=== PATIENT | male | born 2005 | race Caucasian/White ===

== ENCOUNTER 2024-01-09 00:51 | Emergency (ER) | payer OTHER ==
[~2024-01-09] VITALS: Ht 182.9 cm; Wt 70.5 kg
[2024-01-09 02:56] VITALS: TEMP 98.3
[2024-01-09 03:37] LABS: ANION GAP 6 mmol/L (8-16); CARBON DIOXIDE 30 mmol/L (22-29); CHLORIDE 101 mmol/L (98-107); CREATININE 1.01 mg/dL (0.60-1.30); GLOMERULAR FILTR. RATE CALC > 60 mL/min (>60); GLUCOSE,RANDOM 106 mg/dL (70-110); POTASSIUM 3.7 mmol/L (3.5-5.1); SODIUM SERUM 137 mmol/L (136-145); UREA NITROGEN, BLOOD 17 mg/dL (7-18)
[2024-01-09 03:40] LABS: BASOPHILS % (AUTO) 0.6 % (0.0-2.0); EOSINOPHILS % (AUTO) 0.3 % (1.0-6.0); HEMATOCRIT 44.4 % (41-53); HEMOGLOBIN 14.8 g/dL (13.5-17.5); LYMPHOCYTES # (AUTO) 1.4 K/uL (1.0-4.8); LYMPHOCYTES % (AUTO) 20.5 % (22.0-44.0); MEAN CORPUSCULAR HGB CONC 33.4 G/dL (31.0-37.0); MEAN CORPUSCULAR VOLUME 87 fL (80-100); MONOCYTES # (AUTO) 0.6 K/uL (0.1-1.0); MONOCYTES % (AUTO) 8.2 % (2.0-9.0); NEUTROPHILS # (AUTO) 4.8 K/uL (1.8-7.7); NEUTROPHILS % (AUTO) 70.4 % (40.0-70.0); PLATELET COUNT (AUTO) 276 K/uL (150-450); RED BLOOD CELL COUNT(AUTO) 5.12 MIL/uL (4.50-5.90); RED CELL DISTRIBUTION WIDTH 13.5 % (11.5-14.5); WHITE BLOOD COUNT (AUTO) 6.8 K/uL (4.5-11.0)
[2024-01-09 03:48] LABS: ALCOHOL, BLOOD (SERUM) < 3 mg/dL (0-10)
[2024-01-09 04:48] VITALS: BP 124/79; PULSE 85; RESP 16
[2024-01-09 04:57] LABS: COVID AG,FIA SOURCE NASAL SWAB
[2024-01-09 05:16] LABS: ALCOHOL, URINE DRUG SCREEN NEGATIVE (NEGATIVE); AMPHET/METH SCREEN,URINE NEGATIVE (NEGATIVE); BARBITURATE SCREEN, URINE NEGATIVE (NEGATIVE); BENZODIAZEPINES SCREEN,URINE NEGATIVE (NEGATIVE); CANNABINOID SCREEN,URINE POSITIVE (NEGATIVE); COCAINE SCREEN,URINE NEGATIVE (NEGATIVE); METHADONE SCREEN, URINE NEGATIVE (NEGATIVE); OPIATE SCREEN,URINE NEGATIVE (NEGATIVE); PHENCYCLIDINE SCREEN,URINE NEGATIVE (NEGATIVE)
[2024-01-09 05:17] LABS: SARS-COV2 (COVID) ANTIGEN,FIA Positive (Negative)
== END 2024-01-09 05:34 | disposition home or self-care (01) ==
LOC: EMS 00:53
DX: F32.9 Major depressive disorder, single episode, unspecified (principal); R45.851 Suicidal ideations; Z79.899 Other long term (current) drug therapy; Z20.822 Contact with and (suspected) exposure to COVID-19
CPT/HCPCS: 99285; 87426; 80048; 85025; 36415; 80307; G0480

== ENCOUNTER 2024-05-08 13:23 | Inpatient (IN) | payer OTHER ==
[~2024-05-08] VITALS: Ht 182.9 cm; Wt 68.0 kg
[2024-05-08] MEDS ORDERED: ONDANSETRON 4 MG TABLET PO PRN (17:45)
[2024-05-08] MEDS ORDERED: ACETAMINOPHEN 325 MG TABLET PO PRN (17:45)
[2024-05-08] MEDS ORDERED: OxyCODONE HCL 5 MG IR TABLET PO PRN (17:45)
[2024-05-08] MEDS ORDERED: OxyCODONE HCL 10 MG IR TABLET PO PRN (17:45)
[2024-05-08] MEDS ORDERED: NALOXONE HCL 0.4 MG/ML VIAL IVP PRN (18:15)
[2024-05-08 20:30] VITALS: BP 117/66; PULSE 87; RESP 18; TEMP 98.2; O2SAT 99
[2024-05-08] MEDS: POLYETHYLENE GLYCOL 3350 17 GM PACKET PO SCH (21:00)
[2024-05-08] MEDS: METHOCARBAMOL 500 MG TABLET PO SCH (21:29)
[2024-05-08] MEDS: ENOXAPARIN SODIUM 40 MG/0.4 ML PF SYRINGE SQ SCH (21:29)
[2024-05-08] MEDS: GABAPENTIN 300 MG CAPSULE PO SCH (21:30)
[2024-05-08] MEDS: ETHYL ALCOHOL 62% ANTISEPTIC NASAL SANITIZER 0.6 ML AMPUL NASAL SCH (21:30)
[2024-05-08] MEDS: SENNOSIDES 8.6 MG TABLET PO SCH (21:30)
[2024-05-08] MEDS: DOCUSATE SODIUM 100 MG CAPSULE PO SCH (21:30)
[2024-05-09] MEDS: IBUPROFEN 600 MG TABLET PO SCH
[2024-05-09] MEDS: MELATONIN 5 MG TABLET PO PRN (00:17)
[2024-05-09 00:33] VITALS: O2SAT 99
[2024-05-09 07:02] LABS: BASOPHILS % (AUTO) 0.8 % (0.0-2.0); HEMATOCRIT 29.3 % (41-53); HEMOGLOBIN 10.2 g/dL (13.5-17.5); LYMPHOCYTES # (AUTO) 1.6 K/uL (1.0-4.8); LYMPHOCYTES % (AUTO) 18.2 % (22.0-44.0); MEAN CORPUSCULAR HEMOGLOBIN 30.9 pg (26.0-34.0); MEAN CORPUSCULAR HGB CONC 34.8 G/dL (31.0-37.0); MEAN CORPUSCULAR VOLUME 89 fL (80-100); MONOCYTES # (AUTO) 0.9 K/uL (0.1-1.0); MONOCYTES % (AUTO) 10.4 % (2.0-9.0); NEUTROPHILS % (AUTO) 69.6 % (40.0-70.0); PLATELET COUNT (AUTO) 671 K/uL (150-450); RED BLOOD CELL COUNT(AUTO) 3.31 MIL/uL (4.50-5.90); RED CELL DISTRIBUTION WIDTH 14.9 % (11.5-14.5); WHITE BLOOD COUNT (AUTO) 8.6 K/uL (4.5-11.0)
[2024-05-09 07:48] LABS: ALANINE AMINOTRANSFERASE 94 U/L (12-78); ALBUMIN 2.9 g/dL (3.4-5.0); ALKALINE PHOSPHATASE 166 U/L (46-116); ANION GAP 7 mmol/L (8-16); ASPARTATE AMINOTRANSFERASE 23 U/L (15-37); BILIRUBIN,TOTAL 0.5 mg/dL (0.1-1.0); CALCIUM, TOTAL 9.1 mg/dL (8.8-10.5); CARBON DIOXIDE 30 mmol/L (22-29); CHLORIDE 102 mmol/L (98-107); CREATININE 0.63 mg/dL (0.60-1.30); GLOMERULAR FILTR. RATE CALC > 60 mL/min (>60); GLUCOSE,RANDOM 108 mg/dL (70-110); POTASSIUM 4.1 mmol/L (3.5-5.1); SODIUM SERUM 139 mmol/L (136-145); TOTAL PROTEIN, SERUM 6.8 g/dL (6.4-8.2); UREA NITROGEN, BLOOD 17 mg/dL (7-18)
[2024-05-09 08:00] VITALS: BP 116/71; PULSE 71; RESP 18; TEMP 98.1; O2SAT 99
[2024-05-09 20:00] VITALS: BP 122/61; PULSE 103; RESP 18; TEMP 98.2; O2SAT 100
[2024-05-10 08:20] VITALS: BP 121/71; PULSE 83; RESP 19; TEMP 97.8; O2SAT 100
[2024-05-10 09:21] VITALS: O2SAT 100
[2024-05-10] MEDS: METHOCARBAMOL 500 MG TABLET PO SCH (12:29)
[2024-05-10 20:03] VITALS: BP 110/61; PULSE 100; RESP 18; TEMP 98; O2SAT 100
[2024-05-11 00:12] VITALS: O2SAT 100
[2024-05-11 08:00] VITALS: BP 112/63; PULSE 80; RESP 18; TEMP 97.8; O2SAT 100
[2024-05-11 10:34] VITALS: O2SAT 100
[2024-05-11 20:10] VITALS: BP 107/67; PULSE 90; RESP 18; TEMP 98.9; O2SAT 100
[2024-05-11 21:36] VITALS: O2SAT 100
[2024-05-12 08:00] VITALS: BP 110/60; PULSE 61; RESP 19; TEMP 97.7; O2SAT 99
[2024-05-12 20:05] VITALS: BP 111/70; PULSE 91; RESP 18; TEMP 98.6; O2SAT 100
[2024-05-13] VITALS (7 sets, daily range): BP systolic 88–124; BP diastolic 60–70; PULSE 93–108; RESP 18–19; TEMP 98–98.4; O2SAT 97–100
[2024-05-14 08:00] VITALS: BP 117/66; PULSE 67; RESP 18; TEMP 98.1; O2SAT 99
[2024-05-14 11:34] VITALS: O2SAT 99
[2024-05-14 20:15] VITALS: BP 113/73; PULSE 99; RESP 18; TEMP 97.8; O2SAT 100
[2024-05-14 22:10] VITALS: O2SAT 100
[2024-05-15 08:05] VITALS: BP 127/64; PULSE 78; RESP 18; TEMP 98.4; O2SAT 98
[2024-05-15 10:12] VITALS: O2SAT 98
[2024-05-15 12:35] VITALS: BP 118/71; PULSE 81; RESP 18; TEMP 98; O2SAT 98
[2024-05-15 20:15] VITALS: BP 110/67; PULSE 97; RESP 17; TEMP 98.1; O2SAT 98
[2024-05-15 21:24] VITALS: O2SAT 98
[2024-05-16 08:00] VITALS: BP 123/67; PULSE 75; RESP 18; TEMP 98.1; O2SAT 100
[2024-05-16 21:12] VITALS: BP 100/59; PULSE 95; RESP 18; TEMP 98.2; O2SAT 100
[2024-05-16 23:27] VITALS: O2SAT 100
[2024-05-17 08:20] VITALS: BP 115/60; PULSE 77; RESP 18; TEMP 98.3; O2SAT 99
[2024-05-17 09:53] VITALS: O2SAT 99
[2024-05-17 20:00] VITALS: BP 121/72; PULSE 83; RESP 18; TEMP 99; O2SAT 98
[2024-05-18 00:35] VITALS: O2SAT 98
[2024-05-18 08:00] VITALS: BP 122/65; PULSE 77; RESP 18; TEMP 98.1; O2SAT 100
[2024-05-18 20:10] VITALS: BP 115/58; PULSE 85; RESP 18; TEMP 98; O2SAT 98
[2024-05-18 22:59] VITALS: O2SAT 98
[2024-05-19 07:08] LABS: BASOPHILS % (AUTO) 1.1 % (0.0-2.0); HEMATOCRIT 33.6 % (41-53); HEMOGLOBIN 11.4 g/dL (13.5-17.5); LYMPHOCYTES # (AUTO) 1.1 K/uL (1.0-4.8); LYMPHOCYTES % (AUTO) 22.4 % (22.0-44.0); MEAN CORPUSCULAR HEMOGLOBIN 29.5 pg (26.0-34.0); MEAN CORPUSCULAR HGB CONC 34.1 G/dL (31.0-37.0); MEAN CORPUSCULAR VOLUME 87 fL (80-100); MONOCYTES # (AUTO) 0.5 K/uL (0.1-1.0); MONOCYTES % (AUTO) 10.8 % (2.0-9.0); NEUTROPHILS # (AUTO) 3.2 K/uL (1.8-7.7); NEUTROPHILS % (AUTO) 64.7 % (40.0-70.0); PLATELET COUNT (AUTO) 326 K/uL (150-450); RED BLOOD CELL COUNT(AUTO) 3.88 MIL/uL (4.50-5.90); RED CELL DISTRIBUTION WIDTH 14.4 % (11.5-14.5)
[2024-05-19 07:45] VITALS: BP 111/61; PULSE 79; RESP 19; TEMP 98.1; O2SAT 98
[2024-05-19 07:59] LABS: ALANINE AMINOTRANSFERASE 36 U/L (12-78); ALBUMIN 3.3 g/dL (3.4-5.0); ALKALINE PHOSPHATASE 234 U/L (46-116); ANION GAP 8 mmol/L (8-16); ASPARTATE AMINOTRANSFERASE 18 U/L (15-37); BILIRUBIN,TOTAL 0.2 mg/dL (0.1-1.0); CALCIUM, TOTAL 9.4 mg/dL (8.8-10.5); CARBON DIOXIDE 31 mmol/L (22-29); CHLORIDE 101 mmol/L (98-107); CREATININE 0.81 mg/dL (0.60-1.30); GLOMERULAR FILTR. RATE CALC > 60 mL/min (>60); GLUCOSE,RANDOM 106 mg/dL (70-110); POTASSIUM 3.8 mmol/L (3.5-5.1); SODIUM SERUM 140 mmol/L (136-145); TOTAL PROTEIN, SERUM 7.2 g/dL (6.4-8.2); UREA NITROGEN, BLOOD 21 mg/dL (7-18)
[2024-05-19 13:05] VITALS: BP 139/76; PULSE 92; RESP 18; TEMP 98.1; O2SAT 100
[2024-05-19 20:00] VITALS: BP 120/59; PULSE 92; RESP 18; TEMP 98.3; O2SAT 98
[2024-05-20 08:05] VITALS: BP 118/51; PULSE 70; RESP 19; TEMP 98.1; O2SAT 98
[2024-05-20 20:03] VITALS: BP 110/69; PULSE 90; RESP 18; TEMP 98.2; O2SAT 98
[2024-05-21 00:50] VITALS: O2SAT 98
[2024-05-21 08:30] VITALS: BP 119/64; PULSE 71; RESP 18; TEMP 98; O2SAT 98
[2024-05-21 11:00] VITALS: BP 124/63; PULSE 82; RESP 18; TEMP 98.2; O2SAT 98
[2024-05-21] MEDS ORDERED: METHOCARBAMOL 750 MG TABLET PO PRN (11:45)
[2024-05-21 12:11] VITALS: O2SAT 98
[2024-05-21 20:00] VITALS: BP 115/72; PULSE 98; RESP 18; TEMP 98.1; O2SAT 100
[2024-05-21] MEDS: IBUPROFEN 600 MG TABLET PO PRN (23:07)
[2024-05-22 08:05] VITALS: BP 125/78; PULSE 66; RESP 18; TEMP 97.8; O2SAT 98
[2024-05-22] MEDS: ASPIRIN 325 MG TABLET PO SCH (08:16)
[2024-05-22 10:47] VITALS: O2SAT 98
[2024-05-22 20:30] VITALS: BP 122/66; PULSE 103; RESP 19; TEMP 98.4; O2SAT 99
[2024-05-23 01:33] VITALS: O2SAT 99
[2024-05-23 08:00] VITALS: BP 120/68; PULSE 75; RESP 19; TEMP 97.8; O2SAT 100
[2024-05-23] MEDS ORDERED: ASPIRIN 81 MG CHEWABLE TABLET PO SCH (21:00)
== END 2024-05-23 16:50 | DRG 964 ==
LOC: 2WR 17:01
PROVIDERS: ADMIT Physical Medicine & Rehabilitation; ATTEND Physical Medicine & Rehabilitation
DX: S52.391A Other fracture of shaft of radius, right arm, initial encounter for closed fracture (principal); E46 Unspecified protein-calorie malnutrition; S72.8X1 Other fracture of right femur; S27.329A Contusion of lung, unspecified, initial encounter; S52.502A Unspecified fracture of the lower end of left radius, initial encounter for closed fracture; S32.039A Unspecified fracture of third lumbar vertebra, initial encounter for closed fracture; S42.391A Other fracture of shaft of right humerus, initial encounter for closed fracture; S42.491A Other displaced fracture of lower end of right humerus, initial encounter for closed fracture; F33.1 Major depressive disorder, recurrent, moderate; S06.9X0A Unspecified intracranial injury without loss of consciousness, initial encounter; F17.290 Nicotine dependence, other tobacco product, uncomplicated; D75.838 Other thrombocytosis; D64.9 Anemia, unspecified; Z74.09 Other reduced mobility; F41.9 Anxiety disorder, unspecified; G56.31 Lesion of radial nerve, right upper limb; F90.9 Attention-deficit hyperactivity disorder, unspecified type; R26.9 Unspecified abnormalities of gait and mobility; M21.331 Wrist drop, right wrist; S54.21XA Injury of radial nerve at forearm level, right arm, initial encounter; S92.351A Displaced fracture of fifth metatarsal bone, right foot, initial encounter for closed fracture; R53.1 Weakness; V89.2XXA Person injured in unspecified motor-vehicle accident, traffic, initial encounter; Y93.89 Activity, other specified; Y92.89 Other specified places as the place of occurrence of the external cause; Y99.8 Other external cause status; Z68.20 Body mass index [BMI] 20.0-20.9, adult; Z79.899 Other long term (current) drug therapy
CPT/HCPCS: 80053; 85025; 87081; 92523; 97110; 97116; 97140; 97150; 97166; 97530; 97535; 99366; J1650